=== PATIENT | female | born 1990 | race Caucasian/White ===

== ENCOUNTER 2022-09-11 01:05 | Emergency (ER) | payer MEDICAID ==
[~2022-09-11] VITALS: Ht 152.4 cm; Wt 76.7 kg
[~2022-09-11 01:05] MED LIST: IBUP-974 PO; LACT1.4C PO; NITR100C7 PO
[2022-09-11 01:10] VITALS: BP 123/79
--- NOTE | 2022-09-11 01:13 | NUR ---
to lobby a/w bed ambulatory
--- NOTE | 2022-09-11 03:17 | NUR ---
PT TAKEN TO BED 11
--- NOTE | 2022-09-11 03:33 | NUR ---
Dr. Mason examining patient.
[2022-09-11] MEDS ORDERED: NAPR-54 PO (03:39)
[2022-09-11] MEDS ORDERED: AMOX500C25 PO (03:39)
[2022-09-11 03:45] VITALS: BP 123/79
== END 2022-09-11 03:47 | disposition home or self-care (01) ==
LOC: MED 01:05
DX: K08.89 Other specified disorders of teeth and supporting structures (principal); Z79.899 Other long term (current) drug therapy; Z79.1 Long term (current) use of non-steroidal anti-inflammatories (NSAID); Z79.2 Long term (current) use of antibiotics
CPT/HCPCS: 99283

== ENCOUNTER 2023-02-11 02:07 | Emergency (ER) | payer MEDICAID ==
[~2023-02-11] VITALS: Ht 152.4 cm; Wt 81.6 kg
[~2023-02-11 02:07] MED LIST changes: +AMOX500C25 PO; +NAPR-54 PO
[2023-02-11 02:10] VITALS: BP 124/79; PULSE 84; RESP 17; TEMP 98; O2SAT 100
--- NOTE | 2023-02-11 02:13 | NUR ---
TO LOBBY A/W BED AMBULATORY
--- NOTE | 2023-02-11 02:45 | NUR ---
SEEN AND EXAMINED BY MARIELA
[2023-02-11] MEDS ORDERED: CLIN300C2 PO (02:49)
[2023-02-11 03:20] VITALS: BP 124/79; PULSE 84; RESP 17; TEMP 98; O2SAT 100
--- NOTE | 2023-02-11 03:20 | NUR ---
Patient discharged with v/s stable. Written and verbal after care instructions given and explained. Patient alert, oriented and verbalized understanding of instructions. Ambulatory with steady gait. All questions addressed prior to discharge. ID band removed. Patient advised to follow up with PMD. Rx of CLINDAMYCIN given. Patient educated on indication of medication including possible reaction and side effects. Opportunity to ask questions provided and answered.
== END 2023-02-11 03:20 | disposition home or self-care (01) ==
LOC: MED 02:07
DX: L03.115 Cellulitis of right lower limb (principal); Z79.899 Other long term (current) drug therapy
CPT/HCPCS: 90471; 90715; 99283